=== PATIENT | male | born 2000 | race African-American/Black ===

== ENCOUNTER 2021-09-25 07:20 | Day surgery (SDC) | payer BC ==
[~2021-09-25 07:20] MED LIST: Glycopyrrolate 0.2 MG/ML SDV ONE; Lactated Ringers 1,000 ML IV SCH; Ondansetron 4 MG/2 ML SDV ONE; Propofol 200 MG/20 ML SDV ONE; fentaNYL 100 MCG/2 ML SDV ONE
[2021-09-25] MEDS ORDERED: Lidocaine 2% 5 ML SDV ONE (07:22)
== END 2021-09-25 09:25 | disposition home or self-care (01) ==
LOC: MW.SDS 07:20
PROVIDERS: ATTEND Surgery
DX: K31.89 Other diseases of stomach and duodenum (principal); K31.819 Angiodysplasia of stomach and duodenum without bleeding; K21.00 Gastro-esophageal reflux disease with esophagitis, without bleeding; R13.10 Dysphagia, unspecified
CPT/HCPCS: 43239; J2405; J2704; J3010; J3490; J7120; 00731